=== PATIENT | male | born 1985 | race Caucasian/White ===

== ENCOUNTER → 2018-09-28 | Outpatient (CLI) | payer MEDICAID ==
--- NOTE | 2018-09-28 17:54 | RADIOLOGY REPORT (SQ) ---
EXAM DESCRIPTION: CHEST 2 VIEWS COMPLETED DATE/TIME: 09/28/2018 5:20 pm REASON FOR STUDY: R05 COUGH COMPARISON: None. EXAM PARAMETERS: NUMBER OF VIEWS: two views TECHNIQUE: Digital Frontal and Lateral radiographic views of the chest acquired. RADIATION DOSE: NA LIMITATIONS: none FINDINGS: LUNGS AND PLEURA: No opacities, masses or pneumothorax. No pleural effusion. MEDIASTINUM AND HILAR STRUCTURES: No masses or contour abnormalities. HEART AND VASCULAR STRUCTURES: Heart normal size. No evidence for failure. BONES: No acute findings. HARDWARE: None in the chest. OTHER: No other significant finding. IMPRESSION: NO ACUTE RADIOGRAPHIC FINDING IN THE CHEST. TECHNICAL DOCUMENTATION: JOB ID: [id number] [employer]- All Rights Reserved Reading location - IP/workstation name: MELL
== END ==
LOC: RAD 17:06
PROVIDERS: ATTEND Nurse Practitioner Acute Care
DX: R05 Cough (principal)
CPT/HCPCS: 71046

== ENCOUNTER 2020-03-08 07:14 | Day surgery (SDC) | payer MEDICAID ==
[2020-03-08] MEDS ORDERED: PROPOFOL INJ 200 MG/20 ML VIAL IV ONE (07:39)
[2020-03-08 09:24] VITALS: BP 121/81
--- NOTE | 2020-03-08 09:44 | Operative Report ---
Operative Report DATE OF SURGERY: 03/08/20 Operative Report: The risk, benefits and alternatives of the procedure including the risk of bleeding, perforation requiring surgery have been explained to the patient in detail and informed consent has been obtained. Patient is taken back to the endoscopy suite and placed in left, lateral decubital position. Timeout was called. Propofol medication is administered. Rectal examination is done which did not reveal any masses, tears or fissures. An Olympus videoscope was introduced into the patient's rectum. Scope was then carefully advanced all the way to the cecum. Cecum was identified by the usual anatomical landmarks including the ileocecal valve as well as the appendiceal office. Photodocumentation is obtained. Intubation of the terminal ileum was done. Scope was then sequentially pulled back via the various segments of the colon including the ascending colon, hepatic flexure, transverse colon, splenic flexure, descending colon and finally into the rectosigmoid portions of the colon. Retroflexion maneuvers performed. The risks benefits and alternatives of the procedure explained to the patient in detail and informed consent is obtained.A GIF Olympus video scope was inserted into the patient's mouth and hypopharynx, the esophagus is identified intubated and insufflated ,the scope was then advanced through the esophagus stomach and duodenum, retroflexion maneuver is done, the esophagus stomach and first and second portions of the duodenum examined PREOPERATIVE DIAGNOSIS: Abdominal pain, dysphagia, gastroesophageal reflux disease POSTOPERATIVE DIAGNOSIS: Terminal ileum status post biopsy rule out Crohn's disease. Inflammation noted from 55 to 65 cm status post biopsy. Another area of inflammation noted from 45 to 50 cm status post biopsy. Internal hemorrhoids. Esophageal rings and furrows suggestive of eosinophilic esophagitis status post biopsy. Gastritis status post biopsy OPERATION: Colonoscopy with biopsy. EGD with biopsy SURGEON: CLIFF LISA ANESTHESIA: LMAC TISSUE REMOVED OR ALTERED: As noted above. COMPLICATIONS: None. ESTIMATED BLOOD LOSS: None. INTRAOPERATIVE FINDINGS: As noted above. PROCEDURE: Patient tolerated the procedure well. No immediate postprocedure complications are noted. Patient is discharged in good condition. Discharge date 03/08/2020. Discharge diet: Regular. Discharge activity: Regular. 2 to 3-week follow-up to discuss findings. Patient is instructed call the office or proceed to the emergency room should there be any further problems or questions. Wait on the pathology.
--- OUTSIDE RECORDS SUMMARY | 2020-03-09 17:54 | XMS REPORT ---
:1985 Author [facility] Address [facility] [address] [place] [address] Care Team Providers Name Role Phone Danita Barker Attending Clinician Unavailable Krista Chen Attending Clinician Unavailable Allergies, Adverse Reactions, Alerts This patient has no known allergies or adverse reactions. Medications This patient has no known medications. Problems This patient has no known problems. Procedures Procedure Date / Time Performed Performing Clinician Devic e OFFICE/OUTPATIENT VISIT EST 2019-12-17 10:00:00 OFFICE/OUTPATIENT VISIT EST 2018-10-21 17:50:00 Results Test Description Test Time Test Comments Text Results Atomic Results Result Comments RPR (DX) W/REFL TITER AND CONFIRMATORY TESTING 2019-12-20 09:35: 00 Test Item Value Reference Range Comments RPR (DX) W/REFL TITER AND CONFIRMATORY TESTING (test code NO N-REACTIVE NON-REACTIVE = 02330-3) TSH W/REFLEX TO [id number] 09:35:00 Test Item Value Reference Range Comments TSH W/REFLEX TO FT4 (test code = 3016-3) 1.25 mIU/L 0.40-4. 50 CHLAMYDIA/N. GONORRHOEAE RNA, TMA, [id number] 09:35:00 Test Item Value Reference Range Comments CHLAMYDIA TRACHOMATIS RNA, TMA, UROGENITAL NOT DETECTED NOT D ETECTED (test code = 51927-5) NEISSERIA GONORRHOEAE RNA, TMA, UROGENITAL NOT DETECTED NOT D ETECTED (test code = 02581-8) TRICHOMONAS VAGINALIS RNA QUALITATIVE TMA, [id number] 09:35:00 Test Item Value Reference Range Comments TRICHOMONAS VAGINALIS RNA NOT DETECTED NOT DETECTED The an alytical performance QUALITATIVE TMA, MALES character istics of thisassay (test code = 93151-5) have been determined by [employer]. The modifications have not been cl eared or approved bythe F DA. This assay has been validat ed pursuant to theIA regulati ons and is used for clinica l purposes.For additional infor real, please refer [email or web address] [email or web address]/[email or web address] henderson(T his link is nirmal caldwell provided for informational/ed ucational purposes only.) CHOLESTEROL, [id number] 09:35:00 Test Item Value Reference Range Comments CHOLESTEROL, TOTAL (test code = 2093-3) 165 mg/dL <200 HDL [id number] 09:35:00 Test Item Value Reference Range Comments HDL CHOLESTEROL (test code = 2085-9) 40 mg/dL >=40 [id number] 09:35:00 Test Item Value Reference Range Comments TRIGLYCERIDES (test code = 2571-8) 93 mg/dL <150 [id number] 09:35:00 Test Item Value Reference Range Comments LDL-CHOLESTEROL (test 106 mg/dL (calc) <=99 Reference range: <100Desirable code = 55364-2) range <100 mg/dL for primary prevention;<70 m g/dL for patients with CH D or diabetic patientswith > o r = 2 CHD risk factors.LDL-C is now calculated using the Aiden lculation, which is a valid ated novel method providing better accuracy than the Friedew ald equation in theestimation of LDL-C.Cleve SS et al. DONALD. 2013;310(19): 5227-5305(http:/ /education.magnetU.com /faq/BQH536) CHOL/HDLC [id number] 09:35:00 Test Item Value Reference Range Comments CHOL/HDLC RATIO (test code = 9830-1) 4.1 (calc) <5.0 NON HDL [id number] 09:35:00 Test Item Value Reference Range Comments NON HDL CHOLESTEROL (test 125 mg/dL (calc) <130 For p atients with code = 07516-8) diabetes plus 1 major ASCVD riskfactor , treating to a no n-HDL-C goal of <100 mg/ dL(LDL-C of <70 mg/dL) is considered a therapeuticoptio n. COMPREHENSIVE METABOLIC [id number] 09:35:00 Test Item Value Reference Range Comments GLUCOSE (test code = 88 mg/dL 65-99 Fasting ref erence 2345-7) interval UREA NITROGEN (BUN) (test 11 mg/dL -25 code = 3094-0) CREATININE (test code = 1.14 mg/dL 0.60-1.35 2160-0) eGFR NON-AFR. MALAYSIAN 85 mL/min/1.73m2 >=60 (test code = 42385-5) eGFR 98 mL/min/1.73m2 >=60 (test code = 13670-6) BUN/CREATININE RATIO NOT APPLICABLE (calc) 6-22 (test code = 3097-3) SODIUM (test code = 140 mmol/L 520-157 3520-2) POTASSIUM (test code = 4.4 mmol/L 3.5-5.3 2823-3) CHLORIDE (test code = 103 mmol/L 98-110 5-0) CARBON DIOXIDE (test code 27 mmol/L 20-32 = 2027-9) CALCIUM (test code = 9.8 mg/dL 8.6-10.3 77398-4) PROTEIN, TOTAL (test code 6.4 g/dL 6.1-8.1 = 2885-2) ALBUMIN (test code = 4.2 g/dL 3.6-5.1 1751-7) GLOBULIN (test code = 2.2 g/dL (calc) 1.9-3.7 05615-7) ALBUMIN/GLOBULIN RATIO 1.9 (calc) 1.0-2.5 (test code = 1759-0) BILIRUBIN, TOTAL (test 1.1 mg/dL 0.2-1.2 code = 1974-2) ALKALINE PHOSPHATASE 55 U/L 36-130 (test code = 6768-6) AST (test code = 1920-8) 31 U/L 10-40 ALT (test code = 1742-6) 37 U/L 9-46 CBC (INCLUDES DIFF/PLT)2019-12-20 09:35:00 Test Item Value Reference Range Comments WHITE BLOOD CELL COUNT 7.4 Thousand/uL 3.8-10.8 (test code = 6690-2) RED BLOOD CELL COUNT 4.91 Million/uL 4.20-5.80 (test code = 789-8) HEMOGLOBIN (test code = 14.9 g/dL 13.2-17.1 718-7) HEMATOCRIT (test code = 43.7 % 38.5-50.0 4544-3) MCV (test code = 787-2) 89.0 fL 80.0-100.0 MCH (test code = 785-6) 30.3 pg 27.0-33.0 MCHC (test code = 786-4) 34.1 g/dL 32.0-36.0 RDW (test code = 788-0) 12.2 % 11.0-15.0 PLATELET COUNT (test 259 Thousand/uL 140-400 code = 777-3) MPV (test code = 776-5) 10.2 fL 7.5-12.5 ABSOLUTE NEUTROPHILS 4581 cells/uL 8441-2535 (test code = 751-8) ABSOLUTE LYMPHOCYTES 1465 cells/uL 850-3900 (test code = 731-0) ABSOLUTE MONOCYTES (test 540 cells/uL 200-950 code = 742-7) ABSOLUTE EOSINOPHILS 747 cells/uL 15-500 (test code = 711-2) ABSOLUTE BASOPHILS (test 67 cells/uL 0-200 code = 704-7) NEUTROPHILS (test code = 61.9 % 770-8) LYMPHOCYTES (test code = 19.8 % 736-9) MONOCYTES (test code = 7.3 % 5905-5) EOSINOPHILS (test code = 10.1 % 713-8) BASOPHILS (test code = 0.9 % 706-2) COMMENT(S) (test code = Few atyp ical lymphocytes 8251-1) notedReview of p eripheral smear confirmsau tomated results. CULTURE, URINE, [id number] 21:13:00 Test Item Value Reference Range Comments SOURCE: (test code = 67955-9) URINE STATUS: (test code = 8251-1) FINAL RESULT: (test code = 630-4) No G rowth LIPID PANEL, [id number] 12:05:00 Test Item Value Reference Range Comments NON HDL CHOLESTEROL (test code = 04308575) 125 mg/dL (calc) <130 CHOLESTEROL, TOTAL (test code = 87474408) 165 mg/dL <200 HDL CHOLESTEROL (test code = 62821980) 40 mg/dL > OR = 40 TRIGLYCERIDES (test code = 23864523) 93 mg/dL <150 LDL-CHOLESTEROL (test code = 56135955) 106 mg/dL (calc) CHOL/HDLC RATIO (test code = 78855375) 4.14.1 (calc) <5.0 COMPREHENSIVE METABOLIC [id number] 12:05:00 Test Item Value Reference Range Comments GLUCOSE (test code = 37068512) 88 mg/dL 65-99 PROTEIN, TOTAL (test code = 34327168) 6.4 g/dL 6.1-8.1 CALCIUM (test code = 47092745) 9.8 mg/dL 8.6-10.3 BILIRUBIN, TOTAL (test code = 1.1 mg/dL 0.2-1.2 87220724) eGFR (test code = 98 mL/min/1.73m2 > OR = 60 37408591) AST (test code = 23649365) 31 U/L 10-40 GLOBULIN (test code = 15392039) 2.2 g/dL (calc) 1.9-3.7 ALKALINE PHOSPHATASE (test code = 55 U/L 36-130 90042265) eGFR NON-AFR. MALAYSIAN (test code = 85 mL/min/1.73m2 > OR = 60 28520473) ALT (test code = 17469900) 37 U/L 9-46 UREA NITROGEN (BUN) (test code = 11 mg/dL 7-25 77773555) ALBUMIN (test code = 76166201) 4.2 g/dL 3.6-5.1 SODIUM (test code = 89552943) 140 mmol/L 135-146 CARBON DIOXIDE (test code = 48727751) 27 mmol/L 20-32 POTASSIUM (test code = 52592557) 4.4 mmol/L 3.5-5.3 ALBUMIN/GLOBULIN RATIO (test code = 1.9 (calc) 1.0-2.5 25635184) CHLORIDE (test code = 03519637) 103 mmol/L 98-110 CREATININE (test code = 96570031) 1.14 mg/dL 0.60-1.35 BUN/CREATININE RATIO (test code = NOT APPLICABLE (calc) 6-22 00363124) CHLAMYDIA/N. GONORRHOEAE RNA, TMA, [id number] 12:05:00 Test Item Value Reference Range Comments NEISSERIA GONORRHOEAE RNA, TMA, NOT DETECTED NOT DETECTED UROGENITAL (test code = 63876788) CHLAMYDIA TRACHOMATIS RNA, TMA, NOT DETECTEDNOT DETECTED NOT DET ECTED UROGENITAL (test code = 97989961) HIV 1/2 ANTIGEN/ANTIBODY,FOURTH GENERATION [id number] 12:05:00NON-REACTIVE CBC (INCLUDES DIFF/PLT)2019-12-17 12:05:00 Test Item Value Reference Range Comments ABSOLUTE BASOPHILS (test code 67 cells/uL 0-200 = 04802823) RDW (test code = 77570783) 12.2 % 11.0-15.0 EOSINOPHILS (test code = 10.1 % 68678449) MPV (test code = 75552040) 10.2 fL 7.5-12.5 HEMOGLOBIN (test code = 14.914.9 g/dL 13.2-17.1 09255190) ABSOLUTE NEUTROPHILS (test 4581 cells/uL 2713-2948 code = 52264896) HEMATOCRIT (test code = 43.7 % 38.5-50.0 52223804) LYMPHOCYTES (test code = 19.8 % 61642873) WHITE BLOOD CELL COUNT (test 7.4 Thousand/uL 3.8-10.8 code = 01692196) NEUTROPHILS (test code = 61.961.9 % 45732740) PLATELET COUNT (test code = 259 Thousand/uL 140-400 57534852) RED BLOOD CELL COUNT (test 4.91 Million/uL 4.20-5.80 code = 79441220) COMMENT(S) (test code = Few atypical lymphocytes noted 11188123) ABSOLUTE MONOCYTES (test code 993741 cells/uL 200-950 = 13549059) ABSOLUTE EOSINOPHILS (test 747 cells/uL 15-500 code = 89338838) BASOPHILS (test code = 0.9 % 71252083) MCH (test code = 92392856) 30.3 pg 27.0-33.0 MCV (test code = 81971258) 89.0 fL 80.0-100.0 ABSOLUTE LYMPHOCYTES (test 1465 cells/uL 850-3900 code = 31832135) MONOCYTES (test code = 7.3 % 75538445) MCHC (test code = 91584819) 34.134.134.1 g/dL 32.0-36.0 TSH W/REFLEX TO [id number] 12:05:001.251.251.251.25Glucose, Finger Stick\S\ 2019-12-17 10:00:00 Test Item Value Reference Range Comments Glucose, Fingerstick (test code = FSGLUCOSE) 92 mg/dL 70- 99 Hemoglobin A1C\S\2019-12-17 10:00:00 Test Item Value Reference Range Comments HgbA1C, Fingerstick (test code = 4548-4) 5.1 % 4-5.6 CULTURE, URINE, [id number] 00:00:00SEE NOTERapid Strep\S\2018-10-21 17:50:00 Test Item Value Reference Range Comments Rapid Strep (test code = RAPIDSTREP) negative N/A Rapid Strep\S\2018-09-08 15:35:00 Test Item Value Reference Range Comments Rapid Strep (test code = RAPIDSTREP) negative N/A SARS-COV-2, MATTIE Test Item Value Reference Range Comments SARS-COV-2, MATTIE LDTNOT - Not NOT DETECTED NOT DETECTEDTHIS NUCLEIC ACID (test code = Detected AMPLIFICATION TE ST WAS DEVELOPED AND 28918-6) ITS PERFORMANCEC HARACTERISTICS DETERMINED BY [employer]. NUCLEIC ACIDAMPL IFICATION TESTS INCLUDE PCR AND TMA. THIS TEST HAS NOT BEEN FDACLEA RED OR APPROVED. THIS TEST HAS BE EN AUTHORIZED BY FDA UNDER ANEMERGENC Y USE AUTHORIZATION (EUA). THIS TEST IS ONLY AUTHORIZED FORTHE DURATION OF TIME THE DECLARATION THAT CIRCUMSTANCES EXISTJUSTIFYING THE AUTHORIZATION OF THE EMERGENCY US E OF IN VITRODIAGNOSTIC TESTS FOR DETECTION OF SARS-COV-2 HAMZAH AND/OR DIAGNOSISOF COVI D-19 INFECTION UNDER SECTION 564(B)(1 ) OF THE ACT, 21 U.S.C.360BBB-3(B ) (1), UNLESS THE AUTHORIZATION IS TERMINATED OR REVOKEDSOONER.WH EN DIAGNOSTIC TESTING IS NEGAT NISHA, THE POSSIBILITY OF A FALSENEGATI VE RESULT SHOULD BE CONSIDERED IN TH E CONTEXT OF A PATIENT'SRECENT EXPOSURES AND THE PRESENCE OF CLIN ICAL SIGNS AND SYMPTOMSCONSISTE NT WITH COVID-19. AN INDIVIDUAL WITHO UT SYMPTOMS OF COVID-19AND WHO IS NOT SHEDDING SARS-COV-2 VIRUS WOULD EXPECT TO HAVE ANEGATIVE ( NOT DETECTED) RESULT IN THIS ASSAY. Assessments Condition Name Status Diagnosis Date Treating Clinici an Ulcerative colitis, unsp with unspecified Active complications Frequency of micturition Active Encntr screen for infections w sexl mode of Active transmiss Elevated blood-pressure reading, w/o Active diagnosis of htn Cough Active Impacted cerumen, right ear Active Allergic rhinitis, unspecified Active Body mass index (BMI) 31.0-31.9, adult Active Encounters Start End Encounter Admission Attending Care Care Encounter Date/Time Date/Time Type Type Clinicians Facility Department ID 2019-12-17 2019-12-17 Outpatient Mj [facility] FD [id number] 10:00:00 10:00:00 Danita Children [id number] s [id number] and [id number] [facility] 2018-10-21 2018-10-21 Outpatient April [facility] F9 [id number] 17:50:00 17:50:00 Krista Children [id number] s [id number] and [id number] [facility], Social History This patient has no known social history. Vital Signs This patient has no known vital signs.
== END 2020-03-08 09:30 | disposition home or self-care (01) ==
LOC: END 07:14
PROVIDERS: ATTEND Internal Medicine Gastroenterology
DX: K29.50 Unspecified chronic gastritis without bleeding (principal); K50.00 Crohn's disease of small intestine without complications; K29.80 Duodenitis without bleeding; K20.90 Esophagitis, unspecified without bleeding; K62.89 Other specified diseases of anus and rectum; K63.0 Abscess of intestine; K52.9 Noninfective gastroenteritis and colitis, unspecified; K64.8 Other hemorrhoids; K59.00 Constipation, unspecified; Z87.19 Personal history of other diseases of the digestive system; Z20.828 Contact with and (suspected) exposure to other viral communicable diseases
CPT/HCPCS: 43239; 45380; 88342 ×2; 88305 ×2; J2704; 813

== ENCOUNTER → 2020-04-10 | Outpatient (CLI) | payer MEDICAID | LOC: OD 14:23 | PROVIDERS: ATTEND Internal Medicine Gastroenterology | DX: K51.919 Ulcerative colitis, unspecified with unspecified complications (principal) | CPT/HCPCS: 36415; 85652; 86140 ==